=== PATIENT | male | born 1960 | race Caucasian/White ===

== ENCOUNTER 2019-08-08 06:40 | Day surgery (SDC) | payer BC ==
[~2019-08-08] VITALS: Ht 177.8 cm; Wt 78.6 kg
[2019-08-08] VITALS (9 sets, daily range): BP systolic 119–142; BP diastolic 80–106
[2019-08-08] MEDS ORDERED: albumin 25% 100mL bottle x 1 IV PRN (07:20)
[2019-08-08] MEDS ORDERED: normal saline 1000ml 1,000 ML IV PRN (07:20)
[2019-08-08] MEDS ORDERED: ONDA8TAB6 PO (07:46)
[2019-08-08] MEDS ORDERED: LIDO30CR23 TOP (07:46)
[2019-08-08] MEDS ORDERED: PYRI50TA13 PO (07:46)
[2019-08-08] MEDS ORDERED: LORA-269 PO (07:46)
[2019-08-08] MEDS ORDERED: LISI-600 PO (07:46)
[2019-08-08] MEDS ORDERED: CYAN100097 PO (07:46)
[2019-08-08] MEDS ORDERED: PROC-8 PO (07:46)
[2019-08-08] MEDS ORDERED: CALC500T11 PO (07:46)
[2019-08-08] MEDS ORDERED: PANT-47 PO (07:46)
[2019-08-08] MEDS ORDERED: magic mouthwash PO (07:46)
[2019-08-08 10:16] LABS: ALBUMIN,BODY FLUID 2.1 G/DL; GLUCOSE,BODY FLUID 13 MG/DL; LDH,BODY FLUID 2121 U/L; TOTAL PROTEIN,BODY FLUID 4.7 G/DL
[2019-08-08 10:33] LABS: BF RBC COUNT 28225 /CU MM; BF WBC COUNT 850 /CU MM (0-1000); BFAPPEAR HAZY; BFCOLOR RED; BFVOLUME 60 ML
[2019-08-08 10:34] LABS: BF MESOTHELIAL CELLS MODERATE; LYMPHOCYTES,BODY FLUID 31 %; MONOCYTES,BODY FLUID 29 %; NEUTROPHILS,BODY FLUID 40 %
== END 2019-08-08 09:55 | disposition home or self-care (01) ==
LOC: SSTAY O 06:40
PROVIDERS: ATTEND Radiology Vascular & Interventional Radiology
DX: R18.0 Malignant ascites (principal); F41.9 Anxiety disorder, unspecified; I10 Essential (primary) hypertension; Z98.890 Other specified postprocedural states; Z87.442 Personal history of urinary calculi; Z79.899 Other long term (current) drug therapy; Z85.038 Personal history of other malignant neoplasm of large intestine; Z90.49 Acquired absence of other specified parts of digestive tract
CPT/HCPCS: 49083; 82042; 82945; 83615; 84157; 87070; 89051; C1729; J7030; P9047